=== PATIENT | female | born 1990 | race Caucasian/White ===

== ENCOUNTER 2017-06-07 20:23 | Emergency (ER) | payer SELFPAY ==
[2017-06-07 20:42] VITALS: BP 114/63
--- NOTE | 2017-06-07 21:09 | UC ---
Ear Complaint HPI - HPI Summary HPI Summary: C/O ear pain over the last week with drainage in the last several days. - History of Current Complaint Chief Complaint: UCEar Stated Complaint: LEFT EAR PAIN Time Seen by Provider: 06/07/17 21:01 Hx Obtained From: Patient Hx Last Menstrual Period: 08/07/13 ?: No Onset/Duration: Sudden Onset - over the last week, got better, Worse Since - last 3 days with drainage. Severity Initially: Mild Severity Currently: Moderate Associated Signs/Symptoms: Positive: Hearing Loss - Allergies/Home Medications Allergies/Adverse Reactions: Allergies Allergy/AdvReac Type Severity Reaction Status Date / Time No Known Allergies Allergy Verified 06/07/17 20:42 Home Medications: Home Medications Acetaminophen TAB* [Tylenol TAB*] 650 mg PO Q6H PRN 06/07/17 [History Confirmed 06/07/17] Ibuprofen TAB* [Motrin TAB* 600 MG] 600 mg PO Q6H PRN 06/07/17 [History Confirmed 06/07/17] PMH/Surg Hx/FS Hx/Imm Hx Psychological History: Bipolar Disorder - Surgical History Surgical History: Yes Surgery Procedure, Year, and Place: gallbladder - Family History Known Family History: Negative: Cardiac Disease, Hypertension, Diabetes - Social History Occupation: Employed Full-time Lives: With Family Alcohol Use: None Substance Use Type: None Smoking Status (MU): Never Smoked Tobacco Have You Smoked in the Last Year: No Review of Systems ENT: Ear Ache Is Patient Immunocompromised?: No All Other Systems Reviewed And Are Negative: Yes Physical Exam Triage Information Reviewed: Yes Appearance: Well-Appearing, No Pain Distress, Well-Nourished Vital Signs: Initial Vital Signs Temp 97.7 F 06/07/17 20:38 Pulse 73 06/07/17 20:38 Resp 16 06/07/17 20:38 BP 114/63 06/07/17 20:38 Vital Signs Reviewed: Yes Eyes: Positive: Conjunctiva Clear ENT: Positive: Pharynx normal, Other: - left external ear canal swollen, red tender. Neck exam: Normal Respiratory Exam: Normal Cardiovascular Exam: Normal Musculoskeletal Exam: Normal Neurological Exam: Normal Psychological Exam: Normal Skin Exam: Normal Ear Complaint Course/Dx - Differential Dx/Diagnosis Differential Diagnosis/HQI/PQRI: Mastoiditis, Otitis Externa, Otitis Media, Perforated TM Provider Diagnoses: Acute left otitis externa Discharge - Discharge Plan Condition: Stable Disposition: HOME Prescriptions: Ciproflox/Dexameth OTIC.SUSP* [Ciprodex OTIC.SUSP*] 4 drop LEFT EAR BID #1 btl Patient Education Materials: Otitis Externa (ED), Ciprofloxacin/Dexamethasone ( Into the ear), Antibiotic/Anti-inflammatory Combinations (Into the ear) Additional Instructions: If you get water stuck in your ear, use rubbing alcohol to dry out the ear canal and kill the bacteria.
[2017-06-07] MEDS ORDERED: Neomyc/Polym/HC 1% OTIC SUSP* **OTIC LEFT EAR ONE (21:12)
== END 2017-06-07 21:29 | disposition home or self-care (01) ==
LOC: UCCORT 20:23
DX: H60.502 Unspecified acute noninfective otitis externa, left ear (principal); F31.9 Bipolar disorder, unspecified; Z90.49 Acquired absence of other specified parts of digestive tract
CPT/HCPCS: 99202; A9270-GY; G0463

== ENCOUNTER 2017-11-04 19:15 | Emergency (ER) | payer OTHER ==
[2017-11-04 20:09] VITALS: BP 115/70
--- NOTE | 2017-11-04 20:23 | UC ---
UC General HPI - HPI Summary HPI Summary: ON 11/01/17 PT WAS LIFTING A BOX OF APPLES WHILE AT WORK WHEN SHE FELT A SUDDEN CATCH/SPASM IN HER MIDDLE BACK. SHE HAS BEEN SELF TXING WITH SOME LEFT OVER PRESCRIPTION NAPROXEN 500MG TWICE DAILY WHICH HELPS. SHE DENIES ANY CP, SOB, NUMB/WEAK EXTREMITIES. - History of Current Complaint Hx Obtained From: Patient Hx Last Menstrual Period: 10/07/17 Onset/Duration: Sudden Onset Pain Intensity: 7 Aggravating: LIFTING Alleviating: NSAID'S Associated Signs & Symptoms: Positive: Back Pain. Negative: Abdominal Pain, Cough, Chest Pain, Fever, Wheezing <Hina Rose - Last Filed: 11/04/17 20:40> <Addie Mendoza - Last Filed: 11/04/17 20:53> - History of Current Complaint Chief Complaint: UCBackPain Stated Complaint: BACK PAIN/INJURY Time Seen by Provider: 11/04/17 20:14 - Allergy/Home Medications Allergies/Adverse Reactions: Allergies Allergy/AdvReac Type Severity Reaction Status Date / Time No Known Allergies Allergy Verified 11/04/17 20:02 Home Medications: Home Medications Naproxen TAB* [Naprosyn 375 mg TAB*] 500 mg BID PRN 11/04/17 [History Confirmed 11/04/17] PMH/Surg Hx/FS Hx/Imm Hx Previously Healthy: Yes - Surgical History Surgical History: Yes Surgery Procedure, Year, and Place: gallbladder - Family History Known Family History: Negative: Cardiac Disease, Hypertension, Diabetes - Social History Alcohol Use: None Substance Use Type: None Smoking Status (MU): Never Smoked Tobacco Have You Smoked in the Last Year: No - Immunization History Vaccination Up to Date: Yes <Hina Rose - Last Filed: 11/04/17 20:40> Review of Systems Constitutional: Negative Skin: Negative Eyes: Negative ENT: Negative Respiratory: Negative Cardiovascular: Negative Gastrointestinal: Negative Genitourinary: Negative Motor: Negative Neurovascular: Negative Musculoskeletal: Other: - MIDDLE BACK PAIN Neurological: Negative Psychological: Negative Is Patient Immunocompromised?: No All Other Systems Reviewed And Are Negative: Yes <Hina Rose - Last Filed: 11/04/17 20:40> Physical Exam Triage Information Reviewed: Yes Appearance: Well-Appearing Vital Signs: Initial Vital Signs Temp 97.6 F 11/04/17 20:04 Pulse 64 03/13/18 20:04 Resp 16 11/04/17 20:04 BP 115/70 11/04/17 20:04 Pulse Ox 99 11/04/17 20:04 Vital Signs Reviewed: Yes Eye Exam: Normal ENT: Positive: Normal ENT inspection Neck: Positive: Supple, Nontender, No Lymphadenopathy Respiratory: Positive: Lungs clear, Normal breath sounds Cardiovascular: Positive: RRR, No Murmur Abdomen Description: Positive: Nontender, No Organomegaly, Soft. Negative: Distended, Guarding Bowel Sounds: Positive: Present Musculoskeletal: Positive: Other: - Neck/Back: no gross deformity, swelling or discoloration. No spinal tenderness. Paraspinal muscle tenderness in thoracic spine. ROM is intact. 5/5 strength x4. 2+ reflexes x4. Normal steady gait. Neurological: Positive: Alert Psychological: Positive: Age Appropriate Behavior Skin Exam: Normal <Hina Rose - Last Filed: 11/04/17 20:40> Vital Signs: Initial Vital Signs Temp 97.6 F 11/04/17 20:04 Pulse 64 11/04/17 20:04 Resp 16 11/04/17 20:04 BP 115/70 11/04/17 20:04 Pulse Ox 99 11/04/17 20:04 <Addie Mendoza - Last Filed: 11/04/17 20:53> Course/Dx - Course Course Of Treatment: no concern for cardiopulmonary pathology or infection/fx. exam c/w mm spasm/strain. - Differential Dx - Multi-Symptom Provider Diagnoses: Thoracic back strain <Hina Rose - Last Filed: 11/04/17 20:40> Discharge <Hina Rose - Last Filed: 11/04/17 20:40> <Addie Mendoza - Last Filed: 11/04/17 20:53> - Discharge Plan Condition: Stable Disposition: HOME Patient Education Materials: Back Pain (ED) Forms: *Work Release Referrals: Rebeka Martinez MD [Primary Care Provider] - If Needed Additional Instructions: CONTINUE YOUR PRESCRIPTION NAPROXEN EVERY 12 HOURS FOR 5 DAYS FOLLOW UP [facility], [address] [place] [address]. #[phone] Attestation Statement User Type: Provider - I was available for consult. This patient was seen by the advanced practice provider. The patient was not presented to, seen by, or examined by me.-Yina <Addie Mendoza - Last Filed: 11/04/17 20:53>
== END 2017-11-04 20:42 | disposition home or self-care (01) ==
LOC: UCCORT 19:15
DX: S29.012A Strain of muscle and tendon of back wall of thorax, initial encounter (principal); X50.0XXA Overexertion from strenuous movement or load, initial encounter; Y93.89 Activity, other specified; Y92.9 Unspecified place or not applicable; Y99.0 Civilian activity done for income or pay
CPT/HCPCS: 99211; G0463